=== PATIENT | male | born 1995 | race Caucasian/White ===

== ENCOUNTER 2017-07-09 21:44 | Emergency (ER) | payer OTHER ==
[~2017-07-09] VITALS: Ht 165.1 cm; Wt 68.0 kg
[2017-07-09] MEDS ORDERED: ACETAMINOPHEN325 M1 PO (22:04)
[2017-07-09] MEDS ORDERED: TRAMADOL HCL50 MG PO (23:35)
== END 2017-07-09 23:46 | disposition home or self-care (01) ==
LOC: ED 21:44
DX: M54.5 Low back pain (principal); F17.200 Nicotine dependence, unspecified, uncomplicated; Z79.899 Other long term (current) drug therapy
CPT/HCPCS: 80053; 81001; 83690; 85025; 99283

== ENCOUNTER 2019-07-03 19:20 | Emergency (ER) | payer BC ==
[~2019-07-03] VITALS: Ht 170.2 cm; Wt 79.4 kg
[~2019-07-03 19:20] MED LIST: ACETAMINOPHEN325 M1 PO; TRAMADOL HCL50 MG PO
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
[2019-07-03] MEDS ORDERED: AUGMENTIN 875-1 EACH PO (21:30)
== END 2019-07-03 21:42 | disposition home or self-care (01) ==
LOC: ED 19:20
DX: S61.451A Open bite of right hand, initial encounter (principal); F32.9 Major depressive disorder, single episode, unspecified; F17.200 Nicotine dependence, unspecified, uncomplicated; W54.0XXA Bitten by dog, initial encounter
CPT/HCPCS: 99283

== ENCOUNTER 2019-11-22 12:08 | Emergency (ER) | payer BC ==
[~2019-11-22] VITALS: Ht 170.2 cm; Wt 79.7 kg
[~2019-11-22 12:08] MED LIST changes: +AUGMENTIN 875-1 EACH PO
== END 2019-11-22 12:21 | disposition home or self-care (01) ==
LOC: ED 12:08
DX: J02.9 Acute pharyngitis, unspecified (principal)

== ENCOUNTER 2020-09-01 21:30 | Emergency (ER) | payer BC ==
[~2020-09-01] VITALS: Ht 167.6 cm; Wt 86.5 kg
== END 2020-09-01 23:53 | disposition home or self-care (01) ==
LOC: ED 21:30
DX: S82.62XA Displaced fracture of lateral malleolus of left fibula, initial encounter for closed fracture (principal); X50.9XXA Other and unspecified overexertion or strenuous movements or postures, initial encounter; F17.200 Nicotine dependence, unspecified, uncomplicated
CPT/HCPCS: 73610; 99283-25

== ENCOUNTER 2021-12-05 18:09 | Emergency (ER) | payer BC ==
[~2021-12-05] VITALS: Ht 167.6 cm; Wt 87.1 kg
== END 2021-12-05 21:56 | disposition home or self-care (01) ==
LOC: ED 18:09
DX: H10.9 Unspecified conjunctivitis (principal); F17.200 Nicotine dependence, unspecified, uncomplicated
CPT/HCPCS: 99283